=== PATIENT | female | born 1990 | race Hispanic/Latino ===

== ENCOUNTER 2016-08-29 01:02 | Outpatient (CLI) | payer SELFPAY ==
[2016-08-29] MEDS ORDERED: LACTATED RINGERS 500 ML IV ONE (01:21)
[2016-08-29 02:32] LABS: Bacteria,Urine 1+ /HPF (Negative); Bilirubin,Urine NEG (Negative); Blood,Urine NEG (Negative); Ketones,Urine NEG (Negative); Leukocyte Esterase,Urine LG (Negative); Mucus,Urine FEW /HPF; Nitrite,Urine NEG (Negative); Urobilinogen,Urine < 2.0 mg/dL (<2.0)
[2016-08-29 04:07] LABS: Urine Drugs of Abuse Note Disclamer
== END 2016-08-29 02:44 | disposition home or self-care (01) ==
LOC: TRG 01:02
PROVIDERS: ATTEND Obstetrics & Gynecology
DX: O99.333 Smoking (tobacco) complicating pregnancy, third trimester (principal); O21.2 Late vomiting of pregnancy; O26.893 Other specified pregnancy related conditions, third trimester; R10.9 Unspecified abdominal pain; Z3A.30 30 weeks gestation of pregnancy
CPT/HCPCS: 80307; 81001; 96360; J7120

== ENCOUNTER 2018-08-17 19:38 | Inpatient (IN) | payer OTHER ==
--- NOTE | 2018-08-17 19:42 | Emergency Department Report ---
Blank Doc - Documentation Documentation: This is a 28-year-old female that presents with right eyelid swelling and redn ess with cellulitis noted. This initial assessment/diagnostic orders/clinical plan/treatment(s) is/are subject to change based on patient's health status, clinical progression and re- assessment by fellow clinical providers in the ED. Further treatment and workup at subsequent clinical providers discretion. Patient/guardians urged not to elope from the ED as their condition may be serious if not clinically assessed and managed. Initial orders include: 1- Patient sent to MAIN ED for further evaluation and treatment 2- labs
[2018-08-17] MEDS ORDERED: ZOSYN/NS 4.5GM/100ML 4.5 GM/100 ML VIAL IV ONE (20:26)
[2018-08-17] MEDS ORDERED: NACL 0.9% 1000 ML IV ONE (20:26)
[2018-08-17 20:29] LABS: Basophils % (Auto) 0.3 % (0.0-1.8); Eosinophils # (Auto) 0.1 K/mm3 (0.0-0.4); Eosinophils % (Auto) 0.8 % (0.0-4.3); Hematocrit 34.8 % (30.3-42.9); Hemoglobin 11.6 gm/dl (10.1-14.3); Lymphocytes # (Auto) 2.3 K/mm3 (1.2-5.4); Lymphocytes % (Auto) 31.8 % (13.4-35.0); Mean Corpuscular HGB Conc 33 % (30-34); Mean Corpuscular Volume 77 fl (79-97); Monocytes # (Auto) 0.7 K/mm3 (0.0-0.8); Monocytes % (Auto) 9.6 % (0.0-7.3); Platelet Count 258 K/mm3 (140-440); Red Blood Count 4.55 M/mm3 (3.65-5.03); Red Cell Distribution Width 17.3 % (13.2-15.2)
--- NOTE | 2018-08-17 20:46 | Emergency Department Report ---
- General Chief complaint: Skin/Abscess/Foreign Body Stated complaint: FACIAL SWELLING Time Seen by Provider: 08/17/18 19:41 Source: patient Mode of arrival: Ambulatory Limitations: No Limitations - History of Present Illness Initial comments: 28-year-old female with history of seizures presents to ED with facial swelling since this morning. Patient states she had a sore on the right side of her face for the last 2-3 days which she admits to picking. Patient states the sore b ecame bigger. She woke up this morning with swelling to the right eye and right facial swelling. Patient also has edema to the left eye, but states she has been crying all day because of the pain and that has caused her left eye to become swollen as well. Patient denies blurred vision. Reports mild pain to the right eye when looking laft and right. Patient reports history of current drug use, states used heroin and meth a couple of days ago. -: days(s) (3) Location: face Severity: moderate Quality: aching Consistency: constant Improves with: none Worsens with: palpation Context: none Treatments Prior to Arrival: none - Related Data Home Medications Medication Instructions Recorded Confirmed Last Taken No Known Home Medications [No 08/29/16 08/17/18 Unknown Reported Home Medications] Allergies Allergy/AdvReac Type Severity Reaction Status Date / Time No Known Allergies Allergy Verified 08/29/16 01:23 Abscess Boil HPI - HPI Chief Complaint: Skin/Abscess/Foreign Body Stated Complaint: FACIAL SWELLING Time Seen by Provider: 08/17/18 19:41 Home Medications: Home Medications Medication Instructions Recorded Confirmed Last Taken No Known Home Medications [No 08/29/16 08/17/18 Unknown Reported Home Medications] Allergies/Adverse Reactions: Allergies Allergy/AdvReac Type Severity Reaction Status Date / Time No Known Allergies Allergy Verified 08/29/16 01:23 ED Review of Systems ROS: Stated complaint: FACIAL SWELLING Other details as noted in HPI Comment: All other systems reviewed and negative Constitutional: denies: chills, fever Eyes: eye pain. denies: eye discharge, vision change ED Past Medical Hx - Past Medical History Previous Medical History?: Yes Hx Hypertension: No Hx Diabetes: No Hx Deep Vein Thrombosis: No Hx Renal Disease: No Hx Sickle Cell Disease: No Hx Seizures: Yes (Last Seizure last December, Pt not taking med, can't afford them) Hx Asthma: No Hx HIV: No - Surgical History Past Surgical History?: No - Social History Smoking Status: Former Smoker Substance Use Type: Heroin, Marijuana - Medications Home Medications: Home Medications Medication Instructions Recorded Confirmed Last Taken Type No Known Home Medications [No 08/29/16 08/17/18 Unknown History Reported Home Medications] ED Physical Exam - General Limitations: No Limitations General appearance: alert, in no apparent distress - Head Head exam: Present: atraumatic, normocephalic - Eye Eye exam: Present: normal appearance, PERRL, EOMI, other (lid edema present bilaterally without erythema to the lids; no conjunctival chemosis present). Absent: conjunctival injection Pupils: Present: normal accommodation - ENT ENT exam: Present: mucous membranes moist, other (pt has area of cellulitis to right cheek, just to the right of the nose with erythema, induration, tenderness) - Neck Neck exam: Present: normal inspection, full ROM - Respiratory Respiratory exam: Present: normal lung sounds bilaterally. Absent: respiratory distress - Cardiovascular Cardiovascular Exam: Present: normal rhythm, tachycardia - GI/Abdominal GI/Abdominal exam: Present: soft. Absent: distended, tenderness - Extremities Exam Extremities exam: Present: normal inspection - Neurological Exam Neurological exam: Present: alert, oriented X3, CN II-XII intact. Absent: motor sensory deficit - Psychiatric Psychiatric exam: Present: normal affect, normal mood - Skin Skin exam: Present: warm, dry ED Course Vital Signs 08/17/18 08/17/18 08/17/18 20:30 20:34 21:00 Temperature 98.9 F Pulse Rate 111 H Respiratory 19 Rate Blood Pressure 133/72 126/71 Blood Pressure 133/72 [Left] O2 Sat by Pulse 98 99 99 Oximetry 08/17/18 08/17/18 08/17/18 21:30 22:00 22:30 Temperature Pulse Rate Respiratory Rate Blood Pressure 115/69 108/62 112/65 Blood Pressure [Left] O2 Sat by Pulse 99 99 99 Oximetry 08/17/18 08/17/18 08/17/18 22:51 23:00 23:05 Temperature Pulse Rate 87 Respiratory Rate Blood Pressure 109/65 104/65 Blood Pressure [Left] O2 Sat by Pulse 100 99 Oximetry 08/17/18 08/17/18 23:11 23:21 Temperature Pulse Rate Respiratory Rate Blood Pressure 104/65 111/71 Blood Pressure [Left] O2 Sat by Pulse 100 100 Oximetry ED Medical Decision Making - Lab Data Result diagrams: 08/17/18 20:13 08/17/18 20:13 - Medical Decision Making 28 yo F with right facial cellulitis secondary to picking a sore on her right [place]. Pt has some edema to bilateral lids. Unable to obtain CT Orbits due to CT scanner being broken, however, I have a low suspicion for orbital cellulitis as lid edema is bilateral, extraocular movements are normal, there is no conjunctival injection or chemosis, no blurred vision. WBCs and lactate normal. Pt will be admitted for IV antibiotics and observation due to loaction of her cellulitis. Dr Pineda, hospitalist, to admit. - Differential Diagnosis facial cellulitis, abscess, sepsis Critical care attestation.: If time is entered above; I have spent that time in minutes in the direct care of this critically ill patient, excluding procedure time. ED Disposition Clinical Impression: Facial cellulitis Disposition: [id number] OP ADMIT IP TO THIS HOSP Is pt being admited?: Yes Condition: Stable Time of Disposition: 21:49
[2018-08-17 20:54] LABS: BUN/Creatinine Ratio 14; Blood Urea Nitrogen 11 mg/dL (7-17); Calcium 9.3 mg/dL (8.4-10.2); Hemolysis Index 11
[2018-08-17] MEDS ORDERED: VANCOMYCIN/NS 1 GM/250 ML 1 GM/250 ML BAG IV ONE (21:42)
[2018-08-17] MEDS ORDERED: ZOFRAN IV PRN (22:28)
[2018-08-17] MEDS ORDERED: TYLENOL PO PRN (22:29)
[2018-08-17] MEDS ORDERED: VANCOMYCIN PHARMACY TO DOSE IV SCH (23:00)
[2018-08-17] MEDS: NACL 0.9% 1000 ML 1,000 ML IV SCH (23:45)
[2018-08-18] MEDS: ZOSYN/NS 4.5GM/100ML 4.5 GM/100 ML VIAL IV SCH ×4 (02:34→21:41)
[2018-08-18] MEDS: NACL 0.9% 1000 ML 1,000 ML IV SCH ×2 (06:36→21:43)
--- NOTE | 2018-08-18 07:08 | History and Physical Report ---
CHIEF COMPLAINT: Pain and swelling in the face. HISTORY OF PRESENT ILLNESS: The patient is a 28-year-old female who states she has been having pain and swelling especially on the right side of the face going on for 2-3 days. The patient said the problem started with a little skin bleb on the right side of the face, which she started picking on and then it developed into bigger swelling with redness and swelling under the right eye and also the patient has swelling around the left eye which she stated occurred because she has been crying so much due to the pain and the swelling in the face. There is no history of blurry vision and no history of fever or chills. The patient also denies history of nausea and vomiting. The patient gave history of illicit drug use, notably heroin and methamphetamine a few days prior to symptom development. PAST MEDICAL HISTORY: Pertinent for seizure disorder and the patient is not taking any medication for that. PAST SURGICAL HISTORY: Unremarkable. FAMILY HISTORY: Reviewed and noncontributory. SOCIAL HISTORY: The patient is a former cigarette smoker, uses illicit drugs, notably heroin and marijuana. MEDICATIONS: The patient is not on any home meds. ALLERGIES: There are no known drug allergies. REVIEW OF SYSTEMS: CONSTITUTIONAL: There is no fever, no chills, no diaphoresis. HEENT: There is no headache or sore throat. CARDIOVASCULAR SYSTEM: There is no chest pain or orthopnea. RESPIRATORY SYSTEM: There is no shortness of breath or cough. GASTROINTESTINAL SYSTEM: There is no nausea, no vomiting, no abdominal pain, diarrhea or constipation. NEUROLOGICAL SYSTEM: There is no numbness, no dizziness, no altered mental status. MUSCULOSKELETAL SYSTEM: There is no joint pain or swelling. DERMATOLOGICAL SYSTEM: Swelling of the face noted and redness of the face noted. GENITOURINARY SYSTEM: There is no dysuria, hematuria, or flank pain. Rest of system review is normal. PHYSICAL EXAMINATION: GENERAL: At the time of exam, the patient was found to be alert and oriented x 3 and in mild distress due to swelling and pain in the face. VITAL SIGNS: The patient's vital signs at the initial time of presentation showed temperature of 98.9 degrees Fahrenheit, pulse of 111, respirations 19, blood pressure 133/72, O2 sat of 98% on room air. HEENT: Showed pupils to be equal, round, reactive to light and accommodating. Extraocular muscles are intact. NECK: Supple with no JVD or carotid bruit. CARDIOVASCULAR SYSTEM: Showed normal first and second heart sounds with no gallops or murmurs. RESPIRATORY SYSTEM: Showed good air entry on both sides of the lungs with no abnormal breath sounds. GASTROINTESTINAL SYSTEM: Showed abdomen to be full, soft, nontender with no organomegaly or rigidity. NEUROLOGICAL: Shows no focal deficit. MUSCULOSKELETAL SYSTEM: Showed no joint swelling or tenderness. DERMATOLOGICAL SYSTEM: Showed swelling in the face, more on the right than the left with a little scab in the area of the swelling and redness noted also on the right side of the face. There is swelling of the lower eyelid from both eyes. GENITOURINARY SYSTEM: There is no costovertebral angle tenderness. PERTINENT LABORATORY AND IMAGING STUDIES: The patient did not have any imaging studies done at this time. The patient's CBC showed normal white count, normal hemoglobin and normal hematocrit with CBC differential showing slightly elevated monocyte count of 9.6%. The patient's chemistry was unremarkable. Serum test was negative. Lactic acid level was normal. DIAGNOSIS: Cellulitis of the face. PLAN OF CARE: 1. The patient will be placed on observation in the medical [facility]. 2. The patient will continue IV vancomycin started in the Emergency Room with pharmacy to dose and also the patient will continue IV Zosyn 4.5 grams q. 6 hours. 3. The patient will be on Tylenol 650 mg by mouth every 4 hours for fever and headache and will be on IV morphine 2 mg every 4 hours as needed for pain. 4. The patient will be on IV Zofran 4 mg every 8 hours for nausea and vomiting and will be on IV normal saline running at 125 mL an hour. 5. The patient will be on heparin 5000 units subcutaneously q. 12 hours for deep venous thrombosis prophylaxis. 6. The patient's diet will be regular diet. JOB# [id number] OCN/NTS TANVID
--- NOTE | 2018-08-18 09:04 | Progress Note ---
Assessment and Plan Assessment and plan: 28F who has been having pain and swelling in R side of face x 3 days PMH: seizure disorder, not on meds Dx Facial cellulitis IV abx, obtain CT face, ID consult dvt ppx early ambulation History Interval history: Continues to complain of right facial pain and swelling Review of systems Constitutional: No fevers, no malaise, no joint pains CVS: No chest pain, no orthopnea, no dyspnea on exertion, no pedal edema GI: No abdominal pain, no diarrhea, no vomiting, no constipation Respiratory: no wheezing, no coughing Hospitalist Physical - Physical exam Narrative exam: General.: Appears well, no distress, nontoxic HEENT: R facial redness, swelling, warmth and tenderness Neck: supple Cardiac: S1-S2 heard Lungs: clear to auscultation bilaterally Abdomen: soft , nontender, nondistended, bowel sounds positive Extremities: no edema clubbing or cyanosis Skin: no rash or lesions Neurologic: no gross focal deficits Psych: calm, and cooperative - Constitutional Vitals: Temp Pulse Resp BP Pulse Ox 98.8 F 93 H 20 112/66 99 08/18/18 06:13 08/18/18 06:13 08/18/18 06:13 08/18/18 06:13 08/18/18 06:13 Results - Labs CBC & Chem 7: 08/17/18 20:13 08/17/18 20:13 Labs: Laboratory Last Values WBC 7.1 K/mm3 (4.5-11.0) 08/17/18 20:13 RBC 4.55 M/mm3 (3.65-5.03) 08/17/18 20:13 Hgb 11.6 gm/dl (10.1-14.3) 08/17/18 20:13 Hct 34.8 % (30.3-42.9) 08/17/18 20:13 MCV 77 fl (79-97) L 08/17/18 20:13 MCH 26 pg (28-32) L 08/17/18 20:13 MCHC 33 % (30-34) 08/17/18 20:13 RDW 17.3 % (13.2-15.2) H 08/17/18 20:13 Plt Count 258 K/mm3 (140-440) 08/17/18 20:13 Lymph % (Auto) 31.8 % (13.4-35.0) 08/17/18 20:13 Branch % (Auto) 9.6 % (0.0-7.3) H 08/17/18 20:13 Eos % (Auto) 0.8 % (0.0-4.3) 08/17/18 20:13 Baso % (Auto) 0.3 % (0.0-1.8) 08/17/18 20:13 Lymph # 2.3 K/mm3 (1.2-5.4) 08/17/18 20:13 Branch # 0.7 K/mm3 (0.0-0.8) 08/17/18 20:13 Eos # 0.1 K/mm3 (0.0-0.4) 08/17/18 20:13 Baso # 0.0 K/mm3 (0.0-0.1) 08/17/18 20:13 Seg Neutrophils % 57.5 % (40.0-70.0) 08/17/18 20:13 Seg Neutrophils # 4.1 K/mm3 (1.8-7.7) 08/17/18 20:13 Sodium 137 mmol/L (137-145) 08/17/18 20:13 Potassium 3.6 mmol/L (3.6-5.0) 08/17/18 20:13 Chloride 100.0 mmol/L (98-107) 08/17/18 20:13 Carbon Dioxide 22 mmol/L (22-30) 08/17/18 20:13 19 mmol/L 08/17/18 20:13 BUN 11 mg/dL (7-17) 08/17/18 20:13 0.8 mg/dL (0.7-1.2) 08/17/18 20:13 Estimated GFR > 60 ml/min 08/17/18 20:13 14 % 08/17/18 20:13 Glucose 124 mg/dL (65-100) H 08/17/18 20:13 Lactic Acid 1.60 mmol/L (0.7-2.0) 08/17/18 20:13 Calcium 9.3 mg/dL (8.4-10.2) 08/17/18 20:13 HCG, Qual Negative (Negative) 08/17/18 20:56 Active Medications - Current Medications Current Medications: Generic Name Dose Route Start Last Admin Trade Name Freq PRN Reason Stop Dose Admin Acetaminophen 650 mg 08/17/18 22:29 Tylenol PO Q4H PRN Fever >101 Heparin Sodium (Porcine) 5,000 unit 08/18/18 10:00 Heparin SUB-Q Q12HR BRAYAN Piperacillin Sod/Tazobactam Sod 4.5 gm in 100 mls @ 200 mls/hr 08/18/18 03:00 08/18/18 02:34 Zosyn/Ns 4.5gm/100ml IV 200 mls/hr Q6H BRAYAN Administration Protocol Sodium Chloride 1,000 mls @ 125 mls/hr 08/17/18 23:00 08/18/18 06:36 Nacl 0.9% 1000 Ml IV 125 mls/hr DIRECT BRAYAN Administration Vancomycin HCl 1 gm in 250 mls @ 166.667 mls/hr 08/18/18 10:00 Vancomycin/Ns 1 Gm/250 Ml IV Q12H BRAYAN Morphine Sulfate 2 mg 08/17/18 22:28 Morphine IV Q4H PRN Pain, Moderate (4-6) Ondansetron HCl 4 mg 08/17/18 22:28 Zofran IV Q8H PRN Nausea And Vomiting
[2018-08-18] MEDS: HEPARIN SUB-Q SCH ×2 (09:35→21:42)
[2018-08-18] MEDS: VANCOMYCIN/NS 1 GM/250 ML 1 GM/250 ML BAG IV SCH ×2 (10:53→23:23)
--- NOTE | 2018-08-18 12:56 | Consultation ---
History of Present Illness - Reason for Consult Consult date: 08/18/18 facial cellulitis Requesting physician: CRISTOBAL MONTERROSO - History of Present Illness The patient is a 28-year-old female with seizures, substance abuse presented to the emergency room yesterday with complaints of facial swelling, sore on the right side of the face. This began about 10 days ago as a small bump on the right side of the face which she continued to pick intermittently over the cou rse of the illness with intermittent purulent drainage. Yesterday, she woke up with swelling involving her right eye as well as left eye. With excruciating pain, she presented to the hospital and was admitted, started on IV antibiotics. Infectious diseases was consulted for additional recommendations. Patient admits to using IV heroin, methamphetamine as well as snorting of Roxicodone. Smokes cigarettes, occasional alcohol. She complains of chills. She denies any direct skin popping in that area. She also complains of a painful bump on the right back of the head as well as left temporal region. He denies any headache or diplopia. Eyes are swollen shut. Also reports some chills. She has been afebrile here. Review of Systems: General: no fevers or rigors. Chills + HEENT: no new visual disturbance but eyes swollen shut. denies diplopia. Respiratory: No cough, sputum, hemoptysis or shortness of breath Cardiovascular: No chest pain, syncope Gastrointestinal: No nausea, vomiting or diarrhea Genitourinary: No dysuria or hematuria Musculoskeletal: No new or worsening neck pain or back pain Neurologic: No headaches, seizures Hematologic: No easy bruising or bleeding Endocrine: No night sweats or acute weight loss Skin: negative for rash, jaundice Psychiatric: No suicidal or homicidal ideation Past History Past Medical History: seizures Social history: smoking, alcohol abuse, IV drug use Family history: no significant family history Medications and Allergies Allergies Allergy/AdvReac Type Severity Reaction Status Date / Time No Known Allergies Allergy Verified 08/29/16 01:23 Home Medications Medication Instructions Recorded Confirmed Last Taken Type No Known Home Medications [No 08/29/16 08/17/18 Unknown History Reported Home Medications] Active Meds: Active Medications Acetaminophen (Tylenol) 650 mg PO Q4H PRN PRN Reason: Fever >101 Heparin Sodium (Porcine) (Heparin) 5,000 unit SUB-Q Q12HR BRAYAN Last Admin: 08/18/18 09:35 Dose: 5,000 unit Documented by: Sodium Chloride (Nacl 0.9% 1000 Ml) 1,000 mls @ 125 mls/hr IV DIRECT BRAYAN Last Admin: 08/18/18 06:36 Dose: 125 mls/hr Documented by: Vancomycin HCl (Vancomycin/Ns 1 Gm/250 Ml) 1 gm in 250 mls @ 166.667 mls/hr IV Q12H BRAYAN Last Admin: 08/18/18 10:53 Dose: 166.667 mls/hr Documented by: Piperacillin Sod/Tazobactam Sod (Zosyn/Ns 4.5gm/100ml) 4.5 gm in 100 mls @ 200 mls/hr IV Q8H BRAYAN; Protocol Morphine Sulfate (Morphine) 2 mg IV Q4H PRN PRN Reason: Pain, Moderate (4-6) Ondansetron HCl (Zofran) 4 mg IV Q8H PRN PRN Reason: Nausea And Vomiting Physical Examination - Physical Exam Narrative exam: Physical Exam: Constitutional: Alert, cooperative. No acute distress Head, Ears, Nose: Normocephalic, atraumatic. External ears, nose normal. Right face maxillary region with an ulceration with induration and severe tenderness, no active purulence. Right occipital region and left confucianism with indurated nodule, tender Eyes: Conjunctivae/corneas limited exam due to b/l eyelid swelling. No ptosis. Neck: Supple, no meningeal signs Oral: dentition fair, no thrush Cardiovascular: S1, S2 normal. Respiratory: Good air entry, clear to auscultation bilaterally GI: Soft, non-tender; bowel sounds normal. No peritoneal signs Musculoskeletal: No pedal edema, no cyanosis. Skin: No rash or abscess. Tattoos+ Hem/Lymphatic: No palpable cervical or supraclavicular nodes. No lymphangitis Psych: Mood ok. Affect normal Neurological: Awake, alert, oriented. No gross abnormality - Constitutional Vitals: Vital Signs Temp Pulse Resp BP Pulse Ox 99.9 F H 90 14 130/76 100 08/18/18 11:40 08/18/18 11:40 08/18/18 11:40 08/18/18 11:40 08/18/18 11:40 Temperature -Last 24 Hours Temperature 99.9 F Temperature 98.8 F Temperature 98.7 F Temperature 98.9 F Results - Labs CBC & Chem 7: 08/17/18 20:13 08/17/18 20:13 Labs: Abnormal lab results 08/17/18 08/17/18 Range/Units 20:13 20:13 MCV 77 L (79-97) fl MCH 26 L (28-32) pg RDW 17.3 H (13.2-15.2) % Bailey % (Auto) 9.6 H (0.0-7.3) % Glucose 124 H (65-100) mg/dL Assessment and Plan Cultures: 08/17/2018 and blood culture: In progress A/P: 28-year-old female with seizures and active polysubstance abuse admitted with: 1) R facial cellulitis, ?underlying abscess: facial edema with swollen eyelids. 2) Polysubstance abuse: active. Recs: Needs eval for underlying abscess. CT scan machine broken, discussed with radiology, will order STAT MRI instead Continue IV Vancomycin and Zosyn for now Hepatitis panel, HIV screens ordered (patient agreeable) If there is underlying abscess, she might need transfer for plastics/ENT D/W Dr. Monterroso. Araseli Talbot MD, FACP [facility] C: [phone] O: [phone] F: [phone]
--- NOTE | 2018-08-18 15:52 | Magnetic Resonance Report ---
MRI orbit/face 08/18/2018 INDICATION / CLINICAL INFORMATION: R facial cellulitis, abscess. Substance abuse. TECHNIQUE: Multiplanar, multisequence MR images of the brain were obtained. COMPARISON: None available. FINDINGS: : Unenhanced and enhanced MR images of the facial structures and orbits were obtained. Some patient m otion artifact is present. No previous studies are available for comparison. There is prominent superficial soft tissue edema and swelling over the right side of the face, extend ing from the level of the mandible up into the periorbital soft tissues. In addition, soft tissue river ma extends across the bridge of the nose, and is seen in the left maxillary and periorbital region, e xtending up into the frontal and left parietal scalp. Edema extends into the left temporalis muscle i n the left infratemporal fossa. There is no evidence of focal fluid collection. There is no evidence of intraorbital edema or abnorma lity. Visualized portions of the intracranial structures are unremarkable. IMPRESSION: Findings consistent with extensive cellulitic changes in the right and left side of the face as deta iled above. Signer Name: Vinay Mendez MD Signed: 08/18/2018 3:48 PM Workstation Name: [id number]
[2018-08-18] MEDS: MORPHINE IV PRN (21:42)
[2018-08-19] MEDS: ZOSYN/NS 4.5GM/100ML 4.5 GM/100 ML VIAL IV SCH ×2 (07:13→13:05)
[2018-08-19] MEDS: VANCOMYCIN/NS 1 GM/250 ML 1 GM/250 ML BAG IV SCH ×2 (10:34→22:09)
[2018-08-19] MEDS: HEPARIN SUB-Q SCH ×2 (10:34→21:38)
--- NOTE | 2018-08-19 10:48 | Progress Note ---
Assessment and Plan Cultures: 08/17/2018 blood culture: no growth to date 08/17/2018 HIV: negative A/P: 28-year-old female with seizures and active polysubstance abuse admitted with: 1) R facial cellulitis, ?underlying abscess: facial edema with swollen eyelids. MRI shows no evidence of focal fluid collection. There is no evidence of intraorbital edema or abnormality. 2) Polysubstance abuse: active. Recs: Continue IV Vancomycin and Zosyn for now, D2 follow-up hepatitis panel Dr. Talbot will be prosthodontist this weekend, , please call for questions. Sheryl Leblanc NP [facility] M: [phone] O:[phone] Subjective Date of service: 08/19/18 Interval history: Patient seen and examined. Asleep, easy to arouse. Reports no acute distress. no Fevers. Objective - Exam Narrative Exam: Constitutional: Asleep, easy to arouse. No acute distress Head, Ears, Nose: Normocephalic, atraumatic. External ears, nose normal. Right face maxillary region with an ulceration with induration and severe tenderness, no active purulence. Right occipital region and left jew with indurated nodule, tender Eyes: Conjunctivae/corneas limited exam due to b/l eyelid swelling. No ptosis. Neck: Supple, no meningeal signs Oral: dentition fair, no thrush Cardiovascular: S1, S2 normal. Respiratory: Good air entry, clear to auscultation bilaterally GI: Soft, non-tender; bowel sounds normal. No peritoneal signs Musculoskeletal: No pedal edema, no cyanosis. Skin: No rash or abscess. Tattoos+ Hem/Lymphatic: No palpable cervical or supraclavicular nodes. No lymphangitis Psych: Mood ok. Affect normal Neurological: Awake, alert, oriented. No gross abnormality - Constitutional Vitals: Vital Signs Temp Pulse Resp BP Pulse Ox 99.1 F 62 18 127/70 100 08/19/18 05:50 08/19/18 05:50 08/19/18 05:50 08/19/18 05:50 08/19/18 05:50 Temperature -Last 24 Hours Temperature 99.1 F Temperature 98.9 F Temperature 99.6 F Temperature 99.9 F - Labs CBC & Chem 7: 08/17/18 20:13 08/17/18 20:13
[2018-08-19 14:50] LABS: Hepatitis B Surface Antigen Non-Reactive (Negative); Hepatitis C Virus Antibody Reactive (NonReactive)
--- NOTE | 2018-08-19 15:45 | Progress Note ---
Assessment and Plan Assessment and plan: 28F who has been having pain and swelling in R side of face x 3 days, it began after she popped a pimple, she was also picking on a small boil on the back of her scalp PMH: seizure disorder, not on meds Dx Facial cellulitis/sepsis MRI shows no evidence of focal fluid collection. There is no evidence of intraorbital edema or abnormality. ID consult appreciated, cont iv abx dvt ppx early ambulation History Interval history: Continues to complain of right facial pain and swelling Review of systems Constitutional: No fevers, no malaise, no joint pains CVS: No chest pain, no orthopnea, no dyspnea on exertion, no pedal edema GI: No abdominal pain, no diarrhea, no vomiting, no constipation Respiratory: no wheezing, no coughing Hospitalist Physical - Physical exam Narrative exam: General.: Appears well, no distress, nontoxic HEENT: R facial redness, swelling, induration, warmth and tenderness Neck: supple Cardiac: S1-S2 heard Lungs: clear to auscultation bilaterally Abdomen: soft , nontender, nondistended, bowel sounds positive Extremities: no edema clubbing or cyanosis Skin: facial cellulitis as described above, scab on back of scalp Neurologic: no gross focal deficits Psych: calm, and cooperative - Constitutional Vitals: Temp Pulse Resp BP Pulse Ox 98.0 F 70 14 126/85 100 08/19/18 11:49 08/19/18 11:49 08/19/18 11:49 08/19/18 11:49 08/19/18 11:49 Results - Labs CBC & Chem 7: 08/17/18 20:13 08/17/18 20:13 Labs: Laboratory Last Values WBC 7.1 K/mm3 (4.5-11.0) 08/17/18 20:13 RBC 4.55 M/mm3 (3.65-5.03) 08/17/18 20:13 Hgb 11.6 gm/dl (10.1-14.3) 08/17/18 20:13 Hct 34.8 % (30.3-42.9) 08/17/18 20:13 MCV 77 fl (79-97) L 08/17/18 20:13 MCH 26 pg (28-32) L 08/17/18 20:13 MCHC 33 % (30-34) 08/17/18 20:13 RDW 17.3 % (13.2-15.2) H 08/17/18 20:13 Plt Count 258 K/mm3 (140-440) 08/17/18 20:13 Lymph % (Auto) 31.8 % (13.4-35.0) 08/17/18 20:13 [place] % (Auto) 9.6 % (0.0-7.3) H 08/17/18 20:13 Eos % (Auto) 0.8 % (0.0-4.3) 08/17/18 20:13 Baso % (Auto) 0.3 % (0.0-1.8) 08/17/18 20:13 Lymph # 2.3 K/mm3 (1.2-5.4) 08/17/18 20:13 [place] # 0.7 K/mm3 (0.0-0.8) 08/17/18 20:13 Eos # 0.1 K/mm3 (0.0-0.4) 08/17/18 20:13 Baso # 0.0 K/mm3 (0.0-0.1) 08/17/18 20:13 Seg Neutrophils % 57.5 % (40.0-70.0) 08/17/18 20:13 Seg Neutrophils # 4.1 K/mm3 (1.8-7.7) 08/17/18 20:13 Sodium 137 mmol/L (137-145) 08/17/18 20:13 Potassium 3.6 mmol/L (3.6-5.0) 08/17/18 20:13 Chloride 100.0 mmol/L (98-107) 08/17/18 20:13 Carbon Dioxide 22 mmol/L (22-30) 08/17/18 20:13 19 mmol/L 08/17/18 20:13 BUN 11 mg/dL (7-17) 08/17/18 20:13 0.8 mg/dL (0.7-1.2) 08/17/18 20:13 Estimated GFR > 60 ml/min 08/17/18 20:13 14 % 08/17/18 20:13 Glucose 124 mg/dL (65-100) H 08/17/18 20:13 Lactic Acid 1.60 mmol/L (0.7-2.0) 08/17/18 20:13 Calcium 9.3 mg/dL (8.4-10.2) 08/17/18 20:13 HCG, Qual Negative (Negative) 08/17/18 20:56 Hepatitis A IgM Ab Non-reactive (NonReactive) 08/19/18 04:51 Hep Bs Antigen Non-reactive (Negative) 08/19/18 04:51 Hep B Core IgM Ab Non-reactive (NonReactive) 08/19/18 04:51 Reactive (NonReactive) A 08/19/18 04:51 HIV 1&2 Antibody Rapid Non react (Non React) 08/19/18 04:51 Non react (Non React) 08/19/18 04:51 Active Medications - Current Medications Current Medications: Generic Name Dose Route Start Last Admin Trade Name Freq PRN Reason Stop Dose Admin Acetaminophen 650 mg 08/17/18 22:29 Tylenol PO Q4H PRN Fever >101 Heparin Sodium (Porcine) 5,000 unit 08/18/18 10:00 08/19/18 10:34 Heparin SUB-Q 5,000 unit Q12HR BRAYAN Administration Sodium Chloride 1,000 mls @ 125 mls/hr 08/17/18 23:00 08/18/18 21:43 Nacl 0.9% 1000 Ml IV 125 mls/hr DIRECT BRAYAN Administration Vancomycin HCl 1 gm in 250 mls @ 166.667 mls/hr 08/18/18 10:00 08/19/18 10:34 Vancomycin/Ns 1 Gm/250 Ml IV 166.667 mls/hr Q12H BRAYAN Administration Cefepime HCl 1 gm in 100 mls @ 200 mls/hr 08/19/18 15:00 Maxipime/Ns 1 Gm/100 Ml IV Q8HR [facility] [place] Protocol Morphine Sulfate 2 mg 08/17/18 22:28 08/18/18 21:42 Morphine IV 2 mg Q4H PRN Administration Pain, Moderate (4-6) Neomycin/Polymyxin/Bacitracin 1 applic 08/19/18 20:00 Triple Antibiotic TP TID BRAYAN Ondansetron HCl 4 mg 08/17/18 22:28 Zofran IV Q8H PRN Nausea And Vomiting
[2018-08-19] MEDS: MAXIPIME/NS 1 GM/100 ML 1 GM/100 ML BAG IV SCH ×2 (18:10→21:37)
[2018-08-19 18:35] VITALS: BP 131/89
[2018-08-19] MEDS: NACL 0.9% 1000 ML 1,000 ML IV SCH (18:37)
[2018-08-19] MEDS ORDERED: TRIPLE ANTIBIOTIC TP SCH (20:00)
[2018-08-19] MEDS: MORPHINE IV PRN (22:05)
--- NOTE | 2018-08-21 19:01 | Discharge Summary ---
Providers - Providers Date of Admission: 08/17/18 22:25 Attending physician: CRISTOBAL DIMAS MD 08/18/18 05:18 Consult to Wound/ET Nurse [CONS] Routine Reason For Exam: wound eval 08/18/18 08:58 Consult to Physician [CONS] Routine Comment: Consulting Provider: DEYANIRA CHILDS Physician Instructions: Reason For Exam: facial cellulitis [facility] Condition: Stable Hospital course: 28F who has been having pain and swelling in R side of face x 3 days, it began after she popped a pimple, she was also picking on a small boil on the back of her scalp PMH: seizure disorder, not on meds Dx Facial cellulitis/sepsis MRI shows no evidence of focal fluid collection. There is no evidence of intraorbital edema or abnormality. ID consult appreciated, cont iv abx -She decided to sign out AMA and did not complete treatment dvt ppx early ambulation Disposition: DC-07 LEFT AGAINST MED ADVICE Time spent for discharge: 35 minutes Core Measure Documentation - Palliative Care Palliative Care/ Comfort Measures: Not Applicable - Core Measures Any of the following diagnoses?: none Exam - Physical Exam Narrative exam: General.: Appears well, no distress, nontoxic HEENT: R facial redness, swelling, induration, warmth and tenderness Neck: supple Cardiac: S1-S2 heard Lungs: clear to auscultation bilaterally Abdomen: soft , nontender, nondistended, bowel sounds positive Extremities: no edema clubbing or cyanosis Skin: facial cellulitis as described above, scab on back of scalp Neurologic: no gross focal deficits Psych: calm, and cooperative - Constitutional Vitals: Temp Pulse Resp BP Pulse Ox 98.4 F 76 18 131/89 100 08/19/18 17:25 08/19/18 17:25 08/19/18 17:25 08/19/18 17:25 08/19/18 17:25 Plan Follow up with: OSEAS SELBY MD [Primary Care Provider] - 3-5 Days Forms: AMA Form
== END 2018-08-19 23:03 | disposition left against medical advice (07) | DRG 872 ==
LOC: ED 19:38 → 3A 22:25 → OBSVTOIN 22:25
PROVIDERS: ADMIT Internal Medicine; ATTEND Internal Medicine
DX: A41.9 Sepsis, unspecified organism (principal); L03.211 Cellulitis of face; F11.10 Opioid abuse, uncomplicated; G40.909 Epilepsy, unspecified, not intractable, without status epilepticus; F17.210 Nicotine dependence, cigarettes, uncomplicated; F12.10 Cannabis abuse, uncomplicated; Z53.21 Procedure and treatment not carried out due to patient leaving prior to being seen by health care provider; Z71.6 Tobacco abuse counseling
CPT/HCPCS: 36415; 70543; 80048; 80074; 80202; 82140; 84703; 85025; 87040; 87806; 96365; 96367; 96368; 99406; G0378; A6250; A9577; J0692; J1644; J2270; J2543; J3370; J7030

== ENCOUNTER 2018-09-15 19:23 | Emergency (ER) | payer SELFPAY ==
[2018-09-15] MEDS ORDERED: NACL 0.9% 1000 ML 1,000 ML IV ONE (19:35)
--- NOTE | 2018-09-15 19:35 | Emergency Department Report ---
History of Present Illness - General Stated Complaint: OVERDOSE Time Seen by Provider: 09/15/18 19:34 Source: patient, EMS Mode of arrival: Stretcher Limitations: No Limitations - History of Present Illness Initial Comments: Patient is a 28-year-old female that presents emergency room with complaints of overdose. Patient states it was accidental. Patient states her child get high. Patient states her friends injected her with heroin and she did not realize it was laced with fentanyl. Patient was given Narcan by EMS and is alert awake and oriented. Patient denies pain. Patient denies chest pain. Patient denies headache. Patient states she has overdosed before. EMS report received. EMS states the patient never stopped breathing or her heart never stopped. EMS states that the patient was in her car when she overdosed with some friends. EMS states that the friends called 911 due to the age and having snoring respirations. Patient was given 1 mg of Narcan i ntranasal and became awake and alert. Complaint: accidental overdose -: Sudden Intent: other How Overdose Was Discovered: called family/friend Context: Accidental Overdose: wanted to get high Treatments Prior to Arrival: narcan - Related Data Previous Rx's Medication Instructions Recorded Last Taken Type Sulfamethoxazole/Trimethoprim 1 each PO BID 10 Days #20 tablet 09/15/18 Unknown Rx [Bactrim DS TAB] Allergies Allergy/AdvReac Type Severity Reaction Status Date / Time No Known Allergies Allergy Verified 08/29/16 01:23 ED Review of Systems ROS: Stated complaint: OVERDOSE Other details as noted in HPI Constitutional: denies: chills, fever Eyes: denies: eye pain, eye discharge, vision change ENT: denies: ear pain, throat pain Respiratory: denies: cough, shortness of breath, wheezing Cardiovascular: denies: chest pain, palpitations Endocrine: no symptoms reported Gastrointestinal: denies: abdominal pain, nausea, diarrhea Genitourinary: denies: urgency, dysuria, discharge Musculoskeletal: denies: back pain, joint swelling, arthralgia Skin: denies: rash, lesions Neurological: denies: headache, weakness, paresthesias Psychiatric: denies: anxiety, depression, homicidal thoughts, suicidal thoughts Hematological/Lymphatic: denies: easy bleeding, easy bruising ED Past Medical Hx - Past Medical History Previous Medical History?: Yes Hx Hypertension: No Hx Diabetes: No Hx Deep Vein Thrombosis: No Hx Renal Disease: No Hx Sickle Cell Disease: No Hx Seizures: Yes Hx Asthma: No Hx HIV: No - Surgical History Past Surgical History?: No - Family History Family history: no significant - Social History Smoking Status: Current Every Day Smoker Substance Use Type: Heroin - Medications Home Medications: Home Medications Medication Instructions Recorded Confirmed Last Taken Type Sulfamethoxazole/Trimethoprim 1 each PO BID 10 Days #20 tablet 09/15/18 Unknown Rx [Bactrim DS TAB] ED Physical Exam - General Limitations: No Limitations General appearance: alert, in no apparent distress - Head Head exam: Present: atraumatic, normocephalic - Eye Eye exam: Present: normal appearance - ENT ENT exam: Present: mucous membranes moist - Neck Neck exam: Present: normal inspection - Respiratory Respiratory exam: Present: normal lung sounds bilaterally. Absent: respiratory distress - Cardiovascular Cardiovascular Exam: Present: regular rate, normal rhythm. Absent: systolic murmur, diastolic murmur, rubs, gallop - GI/Abdominal GI/Abdominal exam: Present: soft, normal bowel sounds. Absent: distended, tenderness, guarding - Rectal Rectal exam: Present: deferred - Extremities Exam Extremities exam: Present: normal inspection, full ROM - Back Exam Back exam: Present: normal inspection - Neurological Exam Neurological exam: Present: alert, oriented X3 - Psychiatric Psychiatric exam: Present: depressed. Absent: homicidal ideation, suicidal ideation - Skin Skin exam: Present: warm, dry, normal color, other (track orourke noted on antecubital spaces). Absent: rash ED Course Vital Signs 09/15/18 09/15/18 09/15/18 19:26 20:42 23:28 Temperature 98.8 F Pulse Rate 102 H 91 H Respiratory 18 15 14 Rate Blood Pressure 139/87 Blood Pressure 108/68 [Left] O2 Sat by Pulse 99 98 97 Oximetry - Reevaluation(s) Reevaluation #1: Patient awake and alert. Patient denies pain. I discussed all results with patient. Patient is stable for discharge. I discussed plan of care with patient. Patient agrees with plan of care. Patient given outpatient rehabilitation facilities and resources. Patient given discharge instructions. Patient voiced understanding of discharge instructions. 09/15/18 20:43 ED Medical Decision Making - Lab Data Result diagrams: 09/15/18 19:52 - EKG Data -: EKG Interpreted by Me EKG shows normal: sinus rhythm, axis, intervals, QRS complexes, ST-T waves Rate: normal - Medical Decision Making Patient is a 28-year-old female presents emergency room with overdose on heroin. Patient was given Narcan in the field and was immediately arousable. Patient came in completely alert and oriented. Patient stable entire time in the ER. Patient vital signs stable. Patient fluids. Patient's labs essentially unremarkable except for UTI. Patient given rehabilitation resources. Patient stable at discharge. Patient given discharge instructions. Patient given antibiotics for UTI. - Differential Diagnosis overdose. Critical care attestation.: If time is entered above; I have spent that time in minutes in the direct care of this critically ill patient, excluding procedure time. ED Disposition Clinical Impression: Drug abuse and dependence Accidental overdose Qualifiers: Encounter type: initial encounter Qualified Code(s): T50.901A - Poisoning by unspecified drugs, medicaments and biological substances, accidental (unintentional), initial encounter UTI (urinary tract infection) Qualifiers: Urinary tract infection type: acute cystitis Hematuria presence: without hematuria Qualified Code(s): N30.00 - Acute cystitis without hematuria Disposition: DC- TO HOME OR SELFCARE Is pt being admited?: No Does the pt Need Aspirin: No Condition: Stable Instructions: Urinary Tract Infection in Women (ED), Narcotic Abuse (ED) Additional Instructions: Patient to follow-up with primary care in 2-3 days. Patient to follow with a rehabilitation facility. Patient given a list of available rehabilitation facilities. Patient to return to ER if condition worsens. Patient to increase water. Patient to rest. Patient to avoid drug use. Prescriptions: Sulfamethoxazole/Trimethoprim [Bactrim DS TAB] 1 each PO BID 10 Days #20 tablet Referrals: OSEAS SELBY MD [Primary Care Provider] - 2-3 Days Time of Disposition: 22:09
[2018-09-15 20:12] LABS: Basophils # (Auto) 0.1 K/mm3 (0.0-0.1); Basophils % (Auto) 0.7 % (0.0-1.8); Eosinophils # (Auto) 0.1 K/mm3 (0.0-0.4); Eosinophils % (Auto) 1.2 % (0.0-4.3); Hematocrit 34.5 % (30.3-42.9); Hemoglobin 11.9 gm/dl (10.1-14.3); Lymphocytes # (Auto) 1.8 K/mm3 (1.2-5.4); Lymphocytes % (Auto) 22.5 % (13.4-35.0); Mean Corpuscular HGB Conc 34 % (30-34); Mean Corpuscular Volume 76 fl (79-97); Monocytes # (Auto) 0.5 K/mm3 (0.0-0.8); Monocytes % (Auto) 5.8 % (0.0-7.3); Platelet Count 250 K/mm3 (140-440); Red Blood Count 4.55 M/mm3 (3.65-5.03); Red Cell Distribution Width 17.5 % (13.2-15.2)
[2018-09-15 21:39] LABS: Bilirubin,Urine NEG (Negative); Blood,Urine NEG (Negative); Color,Urine Yellow (Yellow); Mucus,Urine FEW /HPF; Urobilinogen,Urine < 2.0 mg/dL (<2.0)
[2018-09-15 21:46] LABS: Amphetamine Screen,Urine PRESUMPTIVE NEGATIVE; Benzodiazepines Screen,Urine PRESUMPTIVE NEGATIVE; Cannabinoid Screen,Urine PRESUMPTIVE NEGATIVE; Cocaine Screen,Urine PRESUMPTIVE NEGATIVE; Methadone Screen,Urine PRESUMPTIVE NEGATIVE
[2018-09-15 21:58] LABS: Opiate Screen,Urine PRESUMPTIVE POSITIVE
[2018-09-15 23:29] VITALS: BP 108/68
== END 2018-09-15 23:30 | disposition home or self-care (01) ==
LOC: ED 19:23
DX: T50.901A Poisoning by unspecified drugs, medicaments and biological substances, accidental (unintentional), initial encounter (principal); N39.0 Urinary tract infection, site not specified; F17.200 Nicotine dependence, unspecified, uncomplicated; Y92.89 Other specified places as the place of occurrence of the external cause
CPT/HCPCS: 36415; 80307; 81001; 84703; 85025; 87086; 93005; 93010; 99285; J7030; 80320; G0480